=== PATIENT | female | born 1945 | race Caucasian/White ===

== ENCOUNTER 2024-11-03 10:08 | Inpatient (IN) ==
--- OUTSIDE RECORDS SUMMARY | 2024-11-03 10:17 | External Medical Summary | Summary of Care ---
Author Name Unknown Organization [facility] Address [address] [facility] [address] Phone [phone] Care Team Providers Care Sheet Rock Applier Name Role Phone Ortiz Iraheta PA-C Primary Care Provider [phone] Reason for Referral * Evaluate & Treat - Unlimited Visits (Within 10 days (routine)) - Pending Review Specialty Diagnoses / Procedures Referred By Teresita teague Referred To Contact Gastroenterology Diagnoses GERD (gastroesophageal reflux disease) Gas pain Magnus Sauceda MD [address] [place] [address] Referral ID Status Reason Start Date Expiration Date Visits Requested Visits Authorized [id number] Pending Review Specialty Services Required [phone] Question Answer Referral Priority Within 10 days (routine) Where should this appointment be scheduled? [facility] For what condition is the patient being referred? All Gastro Conditions Comments Gas, GERD possible ulcer Encounter Details Date Type Department Care Team (Late st Contact Info) Description 06/13/2024 Orders Only Access [place], [address] *DO NOT REMOVE THIS DEPARTMENT* [place] [id number] Request, External Referral GERD (gastroesophageal reflux disease)*; Gas pain Allergies Active Allergy Reactions Criticality Noted Date Comments Morphine And Codeine 02/19/2004 Propoxyphene Hcl 02/19/2004 documented as of this encounter (statuses as of 06/13/2024) Medications Medication Sig Dispensed Refills Start Date End Date Status MULTIVITAMINS PO TABS 1 TABLET DAILY 04/19/2010 Active STOOL SOFTENER 100 MG PO CAPS take 2 am and 2 pm Active FLUOXETINE HCL 20 MG PO CAPSIndications:Depr essive disorder, not elsewhere classified TAKE ONE CAPSULE BY MOUTH TWICE DAILY 180 Cap 3 08/26/2011 Active PROTONIX 40 MG PO TBECIndications:Esop hageal reflux 1 capsule twice a day 180 Tab 3 08/26/2011 Active RANITIDINE HCL 150 MG PO TABSIndications:Refl ux esophagitis One pill by mouth twice daily 180 Tab 3 08/26/2011 Active LEVOXYL 112 MCG OR TABSIndications:Hypo thyroidism TAKE 1 TABLET ONCE DAILY EXCEPT ONLY TAKE 1/2 TABLET EVERY MONDAY 90 Tab 3 08/26/2011 Active FLONASE 50 MCG/ACT NA SUSPIndications:Blood Or Blood Bank Technician kelsi rhinitis USE TWO SPRAYS IN EACH NOSTRIL EVERY DAY 3 Bottle 3 08/26/2011 Active ZOLPIDEM TARTRATE 10 MG PO TABSIndications:Pers istent insomnia One pill immediately before bedtime as needed for sleep. 30 Tab 5 08/26/2011 Active TRAMADOL HCL 50 MG PO TABSIndications:Exam ination following surgery,Hemorrhoids TAKE ONE TABLET BY MOUTH EVERY SIX HOURS NEEDED 120 Tab 0 08/31/2011 Active documented as of this encounter (statuses as of 06/13/2024) Active Problems Problem Noted Date Diagnosed Date Gastroparesis 04/28/2010 Overview: [place] GES at [place] on 04/22/10: T1/2 = 356 minutes. OVERWEIGHT, BMI 25-29 11/23/2009 Overview: Per Obesity Taxonomy Pain in limb 11/14/2005 Venous insufficiency 09/30/2005 Other and unspecified nonspecific immunological findings 12/17/2002 Sicca syndrome 12/17/2002 Hypothyroidism Dyslipidemia, goal to be determined Esophageal reflux Major depressive disorder Overview: ICD-10 update of inactive term Chronic rhinitis Varicose vein of leg Need for prophylactic hormon e replacement therapy (postmenopausal) Diaphragmatic hernia documented as of this encounter (statuses as of 06/13/2024) Resolved Problems Problem Noted Date Diagnosed Date Resolved Date OBESITY, UNSPECIFIED 010 Overview: Per Obesity Taxonomy documented as of this encounter (statuses as of 06/13/2024) Immunizations Name Administration Dates Next Due Seasonal Influenza Vac., MDV, IM, 0.5 mL (Fluzon e) 06/21/2006 TDAP, Age 7 and older, IM (Adacel) 12/15/2008 documented as of this encounter Social History Tobacco Use Types Packs/Day Years Used Date Smoking Tobacco: Former Smokeless Tobacco: Never Comments:quit 1986 Alcohol Use Standard Drinks/Week Comments No 0 (1 standard drink = 0.6 oz pur e alcohol) Utilities Answer Date Recorded Do you have trouble paying y our heating, water, or electric bill? (Adult - for ages 18 years and over) Not on file 02/13/2024 Is your family able to pay t he heat, water, or electric bill? (Household - for ages 0-17 years) Not on file 02/13/2024 Does your family have access to good internet? (Household - for ages 0-17 years) Not on file 02/13/2024 Social Connections Answer Date Recorded How often do you feel lonely or isolated from those around you? (Adult - for ages 18 years and over) Not on file 02/13/2024 Sex and Gender Information Value Date Recorded Sex Assigned at Not on file Gender Identity Not on file Sexual Orientation Not on file documented as of this encounter Plan of Treatment Scheduled Referrals Name Type Priority Associated Diagnoses Order Schedule ADULT GASTROENTEROLOGY REFERRAL OP Referral Within 10 days (routine) GERD (gastroesophageal reflux disease) Gas pain Ordered: 06/13/2024 Health Maintenance Due Date Last Done Comments Depression Monitoring 1957 Hepatitis C Screening 1965 Zoster Vaccines (1 of 2) 1997 TSH 10/21/2011 10/21/2010, 0908/2009, 12/15/2008, Additional history exists Pneumococcal Vaccine: 65+ Years (1 of 1 - PCV) 2012 DXA Scan 11/16/2018 11/16/2008 DTap/Tdap Vaccines (2 - Td or Tdap) 12/15/2018 12/15/2008 COVID-19 Vaccine (1 - season) 2024 Influenza Vaccine (FLU shot) (#1) 2024 06/21/2006 Colorectal Cancer Screening Discontinued Fecal Occult Blood Test Discontinued 11/03/2008 Cologuard Discontinued Colonoscopy Discontinued HPV (Gardasil) Vaccine Aged Out No lo nger eligible based on patient's age to complete this topic Hepatitis B Vaccine Aged Out No longe r eligible based on patient's age to complete this topic MENINGOCOCCAL (MENACTRA/MENVEO) Aged Out No longer eligible based on patient's age to complete this topic Sigmoidoscopy Discontinued documented as of this encounter Medical Devices Not on filedocumented as of this encounter Visit Diagnoses Diagnosis GERD (gastroesophageal reflux disease)- Primary Esophageal reflux Gas pain Flatulence, eructation, and gas pain documented in this encounter Care Teams Sheet Rock Applier Relationship Specialty Start Date End Date Ortiz Iraheta, SANDRO PCP - General Physician Senior Bioinformatics Scientist 10/18/11 documented as of this encounter
--- NOTE | 2024-11-03 10:47 | XRay Report ---
XR chest 1V portable CLINICAL HISTORY: Dyspnea COMPARISON STUDY: None FINDINGS: Heart size and pulmonary vasculature are normal. Upper lungs are lucent, possible emphysema . There are mild peripheral reticular opacities which are likely chronic, likely scarring or early pu lmonary fibrosis. No other consolidation or pleural effusion. No pneumothorax. IMPRESSION: No acute lobar pneumonia is seen. Otherwise as described. ACT 112: Negative or not required by law. Electronically signed by: Mark Dillard M.D. 11/03/2024 10:46 AM
[2024-11-03 10:52] LABS: Basophils # (auto) 0.06 K/uL (0.00-0.20); Basophils % (auto) 0.4 %; Eosinophils # (auto) 0.39 K/uL (0.00-0.50); Eosinophils % (auto) 2.9 %; Hematocrit (blood only) 39.8 % (37.0-47.0); Hemoglobin 12.7 g/dl (12.0-16.0); Immature Granulocytes # (auto) 0.37 K/uL (0.01-0.20); Immature Granulocytes % (auto) 2.7 %; Lymphocytes # (auto) 2.67 K/uL (1.20-3.40); Lymphocytes % (auto) 19.8 %; Mean Corpuscular Hemoglobin 29.3 pg (25.0-34.0); Mean Corpuscular Hgb Conc 31.9 g/dL (32.0-36.0); Mean Corpuscular Volume 91.9 fL (80.0-100.0); Mean Platelet Volume 8.3 fL (9.4-12.4); Monocytes # (auto) 1.27 K/uL (0.11-0.59); Monocytes % (auto) 9.4 %; Neutrophils # (auto) 8.75 K/uL (1.40-6.50); Neutrophils % (auto) 64.8 %; Platelet Count 429 K/uL (130-400); RDW Coefficient of Variation 16.7 % (11.5-14.5); RDW Standard Deviation 56.1 fL (36.4-46.3); Red Blood Count 4.33 M/uL (4.20-5.40); White Blood Count 13.51 K/ul (4.8-10.8)
[2024-11-03 11:04] LABS: Albumin Globulin Ratio 1.3 (0.9-2); BUN Creatinine Ratio 28.6 (10-20); Bilirubin,Total 0.5 mg/dl (0.2-1.0); Calcium 9.3 mg/dl (8.6-10.3); Creatinine Clr Calc Pharmacy 40.2 ml/min; Globulin 3.1 gm/dl (2.5-4.0); Total Protein 7.1 gm/dl (6.0-8.3)
[2024-11-03 11:11] LABS: Troponin I High Sensitivity 6.1 pg/ml (0-14)
[2024-11-03 11:53] LABS: Adenovirus PCR Not Detected (NotDetected); Bordetella parapertussis PCR Not Detected (NotDetected); Bordetella pertussis PCR Not Detected (NotDetected); Chlamydia pneumoniae PCR Not Detected (NotDetected); Coronavirus 229E PCR Not Detected (NotDetected); Coronavirus CoV-2 (COVID19)PCR Not Detected (NotDetected); Coronavirus HKU1 PCR Not Detected (NotDetected); Coronavirus NL63 PCR Not Detected (NotDetected); Coronavirus OC43PCR Not Detected (NotDetected); Human Metapneumovirus PCR Not Detected (NotDetected); Influenza A PCR Not Detected (NotDetected); Influenza B PCR Not Detected (NotDetected); Mycoplasma pneumoniae PCR Not Detected (NotDetected); Parainfluenza Virus 1 PCR Not Detected (NotDetected); Parainfluenza Virus 2 PCR Not Detected (NotDetected); Parainfluenza Virus 3 PCR Not Detected (NotDetected); Parainfluenza Virus 4 PCR Not Detected (NotDetected); Respiratory Syncytial VirusPCR Not Detected (NotDetected); Rhinovirus/Enterovirus PCR Not Detected (NotDetected)
[2024-11-03] MEDS: methylPREDNISolone 125 MG/2 ML VIAL IV STA (12:14)
[2024-11-03] MEDS: ALBUT/IPRATROP 3MG/0.5MG NEB 3 ML VIAL NEB STA (12:14)
[2024-11-03] MEDS: OPTIRAY 320 125ml IV ONE (12:27)
--- NOTE | 2024-11-03 12:44 | CT Scan Report ---
CT angio chest PE protocol CT DOSE: 233.08 mGy.cm HISTORY: dyspnea, hypoxia. TECHNIQUE: Multiple CTA images of the chest were obtained after the intravenous administration of 120 ml Optiray. Coronal and sagittal MIPS were obtained from the axial data set and were submitted for review. All measurements were obtained according to NASCET criteria. A dose lowering technique was u tilized adhering to the principles of ALARA. COMPARISON STUDY: Chest x-ray earlier today FINDINGS: There is minimal bronchiectasis. There are mild diffuse peripheral subpleural reticular and groundglass opacities most prominent in the lung bases which have morphology suggesting scarring or early interstitial lung disease. There is a small area of patchy consolidation medial posterior left lower lobe. No other consolidation or pleural effusion. No pneumothorax. No enlarged adenopathy. No p ericardial effusion. Ascending thoracic aorta measures 3.7 cm greatest diameter, mildly ectatic, and narrows smoothly to normal caliber of 2.7 cm at the proximal descending thoracic aorta. No pulmonary embolism seen. No pericardial effusion. No acute osseous findings. IMPRESSION: 1. No pulmonary embolism. 2. 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 3. Small area of superimposed acute pneumonia at the left lower lobe. ACT 112: Negative or not required by law. The above report was generated using voice recognition software. It may contain grammatical, syntax o r spelling errors. Electronically signed by: Mark Dillard M.D. 11/03/2024 12:41 PM
--- NOTE | 2024-11-03 13:34 | History & Physical Report ---
Date of Service November 03, 2024 Assessment & Plan (1) Dyspnea: (2) Hypoxic episode: (3) Asthma exacerbation: (4) Pneumonia involving left lung: Plan: Elda Guillen is a 79y/o F with PMHx significant for hypothyroidism, HLD, chronic rhinitis, history of vertical banding gastroplasty converted to Zeus-en-Y bypass due to gastroparesis done in 2020 at [facility], diaphragmatic hernia, GERD, SIBO, venous insufficiency, peripheral neuropathy, depression, asthma and ILD who presented to the ED with c/o persistent cough and worsening SOB over the course of several weeks. Worsening SOB and persistent cough for about the last month ISO asthma and ILD. Recently completed burst course of oral prednisone and 5-day course of oral doxycycline about 2 weeks ago. Prior to that, patient was on a Z-Jakub and also an additional oral prednisone burst course. She has not noticed any improvement in her SOB. Patient feels short of breath with both rest and exertion, however her SOB is significantly worse with activity. No supplemental oxygen use at home. Follows with Dr. Sami Cárdenas of [facility]. Had chest CT done 2 weeks ago at [facility] which was unremarkable per patient's recollection although there are no records available to review this imaging study - HIM consulted. No hypoxia at rest; however was hypoxic with ambulation in the ED with O2 sat % dropping into the mid to low 80s. Did not require supplemental O2 in the ED or at time of admission. S/p 40mg IV Solu-Medrol in the ED. Initial laboratory evaluation notable for leukocytosis with neutrophilic predominance. Procalcitonin/lactate negative. RVP negative. CXR with noted possible emphysema and mild peripheral reticular opacities which are likely chronic and represent either scarring or early pulmonary fibrosis. 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 Covering with IV cefepime for now. Check nasal MRSA swab. Obtain sputum culture as able. Probiotic added on. Follow blood cultures. Continue IV Solu-Medrol 40mg Q8H for now. Continue Breo Ellipta/Singulair. Prophylactic PPI ordered. Appreciate pulmonology consult given persistence of symptoms. Scheduled Duonebs. ISP/flutter valve. Hypertonic nebs BID. Mucinex BID. (5) Severe malnutrition: Plan: BMI 15.7 on admission. Patient endorses limited appetite due to early satiety given her history of vertical banding gastroplasty converted to Zeus-en-Y bypass due to gastroparesis which was performed in 2020 at [facility]. On megestrol liquid suspension for appetite stimulation. Nutrition consult pending. (6) Dysphagia: Plan: Patient elicits that she sometimes has difficulty swallowing food and liquid. Endorses a "stuck" sensation in her throat at times. Documented history of diaphragmatic hernia in her outpatient records however patient and her daughter do not recall this. Did obtain CTAP for further evaluation. CTAP with the following findings: -Gaseous, formed stool and fluid distention of redundant colonic loops and some small bowel loops. -There are some relatively normal caliber small bowel loops in left abdomen and a spiral appearance of the mesentery which could reflect an internal hernia and partial obstruction. Will consult general surgery regarding the above findings. Full liquid diet pending general surgery evaluation. Speech therapy consult also pending to further evaluate dysphagia. Can continue home Linzess. (7) Hypothyroidism: Plan: Chronic, stable. Check TSH in AM. Continue levothyroxine. (8) Depression: Plan: Chronic, stable. Continue fluoxetine. (9) Peripheral neuropathy: Plan: Chronic, stable. Continue gabapentin. DVT Prophylaxis: SQ Heparin Code Status: FULL CODE PCP: Magnus Sauceda MD Disposition: Admit to med/telemetry for further inpatient evaluation and management. Patient seen in collaboration with Dr. Hennessy. Please see addendum. I spent a total of 65 minutes coordinating, documenting, and providing care for this patient excluding time spent in the performance of separately billed services or time spent by another provider/QHP. This included personally reviewing all current laboratories and imaging studies, medical reconciliation, outpatient chart review and discussion with specialists. This chart was completed in part utilizing Speech Voice Recognition Software. Grammatical errors, random word insertions, pronoun errors, and incomplete sentences are an occasional consequence of this system due to software limitations, ambient noise, and hardware issues. Any formal questions or c oncerns about the content, text, or information contained within the body of this dictation should be directly addressed to the provider for clarification. History of Present Illness Chief Complaint: Ongoing cough and worsening SOB, flulike symptoms Primary Care Provider: Magnus Sauceda MD Elda Guillen is a 79y/o F with PMHx significant for hypothyroidism, HLD, chronic rhinitis, history of vertical banding gastroplasty converted to Zeus-en-Y bypass due to gastroparesis done in 2020 at [facility], diaphragmatic hernia, GERD, SIBO, venous insufficiency, peripheral neuropathy, depression, asthma and ILD who presented to the ED with c/o persistent cough and worsening SOB over the course of several weeks. History obtained from the patient, daughter at bedside, discussion with ED provider and associated chart review. Patient with worsening SOB and persistent cough for about the last month ISO asthma and ILD. Recently completed burst course of oral prednisone and 5-day course of oral doxycycline about 2 weeks ago. Prior to that, patient was on a Z- Jakub and also an additional oral prednisone burst course. She has not noticed any improvement in her SOB. Patient feels short of breath with both rest and exertion, however her SOB is significantly worse and more noticeable with activity. Her breathing has gradually declined over the past month to the point where she becomes greatly winded with minimal exertion. No supplemental oxygen use at home. Follows with Dr. Sami Cárdenas of [facility]. Currently on Singulair and Breo Ellipta inhaler for maintenance therapy. Notes she was started on Breo Ellipta about 3 months ago. Was previously on Spiriva per her daughter. Has been using budesonide nebulizer treatments daily for the past month or so. Denies using her albuterol rescue inhaler all but a few times however. Her cough was initially productive of yellow/green sputum however now it is significantly less productive after finishing the doxycycline course about 2 weeks ago as mentioned previously. No reported fevers. Had chest CT done 2 weeks ago at [facility] which was unremarkable per patient's recollection although there are no records available to review this imaging study. Not hypoxic at rest in the ED, however her oxygen saturation did drop to the low 80s with ambulation. Did not require any supplemental oxygen in the ED. Remains nonhypoxic at rest during our conversation. Initial laboratory evaluation notable for leukocytosis with neutrophilic predominance (WBC of 13.5k). Electrolytes stable. Procalcitonin negative. Lactate negative. Respiratory BioFire panel negative as well. CXR with noted possible emphysema and mild peripheral reticular opacities which are likely chronic and represent either scarring or early pulmonary fibrosis. 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 Allergies Allergy/AdvReac Type Severity Reaction Status Date / Time Penicillins Allergy Intermediate Rash Unverified 11/03/24 12:45 Sulfa (Sulfonamide Allergy Intermediate Rash Unverified 11/03/24 12:45 Antibiotics) Home Medications Medication Instructions Recorded Confirmed Type fluoxetine 40 mg capsule 40 mg PO QAM 03/28/24 11/03/24 History gabapentin 100 mg capsule 100 mg PO TID 03/28/24 11/03/24 History levothyroxine 100 mcg tablet 100 mcg PO QAM 03/28/24 11/03/24 History melatonin 10 mg capsule 10 mg PO HS 03/28/24 11/03/24 History montelukast 10 mg tablet 10 mg PO DAILY 03/28/24 11/03/24 History trazodone 100 mg tablet 100 mg PO HS 03/28/24 11/03/24 History albuterol sulfate 90 mcg/actuation 1 puff inhalation QID PRN 11/03/24 11/03/24 History aerosol inhaler SOB/wheezing budesonide 0.5 mg/2 mL suspension 0.5 mg inhalation BID PRN 11/03/24 11/03/24 History for nebulization SOB/WHEEZING fluticasone furoate 100 1 inh inhalation QAM 11/03/24 11/03/24 History mcg-vilanterol 25 mcg/dose inhalation powder (Breo Ellipta) linaclotide 145 mcg capsule 145 mcg PO QAM 11/03/24 11/03/24 History (Linzess) megestrol 625 mg/5 mL (125 mg/mL) 625 mg PO QAM 11/03/24 11/03/24 History oral suspension Past Med/Surg History Problem List (Updated 11/03/24 @ 16:07 by Lisa Winn PA-C) Peripheral neuropathy Depression Hypothyroidism Dysphagia GERD (gastroesophageal reflux disease) Severe malnutrition Hypoxic episode Asthma exacerbation Dyspnea Hypoxia (Acute) Pneumonia involving left lung (Acute) Dyspnea on exertion (Acute) Social History Smoking Status: Never smoker Feels Safe at Home: Yes Review of Systems Review of Systems: At least ten systems reviewed and negative, except as noted in the HPI. Physical Exam Physical Exam: General: Thin/frail elderly F, malnourished. NAD. Sitting up in bed, very pleasant. Conversing with ease at rest. A+Ox3. Daughter at bedside. HEENT: Normocephalic, atraumatic. Conjunctivae normal, anicteric sclerae. External ear and nose normal, oropharynx somewhat dry. Respiratory: Normal respiratory effort. Lung sounds diminished throughout. + rhonchi in LLL. + mild expiratory wheezing throughout. On RA. Cardiovascular: Regular rate, regular rhythm. Normal peripheral pulses. No BLE edema. Abdomen/GI: Normal bowel sounds, soft. Nondistended. Nontender to palpation in all quadrants. No guarding. Extremities/Musculoskeletal: No cyanosis or clubbing, extremities motor strength intact, actively moves all extremities. Results & Data Results & Data Vital Signs (Past 12 Hours) Vital Signs Temp Pulse Resp BP Pulse Ox Pulse Ox O2 Del Method 11/03/24 13:03 74 20 121/65 98 Room Air 11/03/24 12:42 73 20 119/62 98 Room Air 11/03/24 12:12 70 23 122/66 98 Room Air 11/03/24 11:33 67 19 125/73 99 Room Air 11/03/24 11:26 87 L Room Air 11/03/24 11:12 66 19 126/66 99 Room Air 11/03/24 10:39 65 11/03/24 10:37 99 Room Air 11/03/24 10:36 65 19 131/63 99 Room Air 11/03/24 10:16 36.2 C L 76 22 107/66 99 Room Air Laboratory Results Short CBC 11/03/24 Range/Units 10:30 WBC 13.51 H (4.8-10.8) K/ul Hgb 12.7 (12.0-16.0) g/dl Hct 39.8 (37.0-47.0) % Plt Count 429 H (130-400) K/uL BMP 11/03/24 10:30 Sodium 136 Potassium 4.0 Chloride 108 H Carbon Dioxide 22 BUN 22 Creatinine 0.77 Glucose 82 Calcium 9.3 Liver Function 11/03/24 Range/Units 10:30 Total Bilirubin 0.5 (0.2-1.0) mg/dl AST 19 (13-39) U/L ALT 20 (7-52) U/L Alkaline Phosphatase 67 (34-104) U/L Albumin 4.0 (3.4-5.0) gm/dl Diagnostic Findings Chest X-Ray 11/03/24 10:30 XR chest 1V portable CLINICAL HISTORY: Dyspnea COMPARISON STUDY: None FINDINGS: Heart size and pulmonary vasculature are normal. Upper lungs are lucent, possible emphysema. There are mild peripheral reticular opacities which are likely chronic, likely scarring or early pulmonary fibrosis. No other consolidation or pleural effusion. No pneumothorax. IMPRESSION: No acute lobar pneumonia is seen. Otherwise as described. ACT 112: Negative or not required by law. Electronically signed by: Mark Dillard M.D. 11/03/2024 10:46 AM Chest CTA 11/03/24 12:05 CT angio chest PE protocol CT DOSE: 233.08 mGy.cm HISTORY: dyspnea, hypoxia. TECHNIQUE: Multiple CTA images of the chest were obtained after the intravenous administration of 120 ml Optiray. Coronal and sagittal MIPS were obtained from the axial data set and were submitted for review. All measurements were obtained according to NASCET criteria. A dose lowering technique was utilized adhering to the principles of ALARA. COMPARISON STUDY: Chest x-ray earlier today FINDINGS: There is minimal bronchiectasis. There are mild diffuse peripheral subpleural reticular and groundglass opacities most prominent in the lung bases which have morphology suggesting scarring or early interstitial lung disease. There is a small area of patchy consolidation medial posterior left lower lobe. No other consolidation or pleural effusion. No pneumothorax. No enlarged adenopathy. No pericardial effusion. Ascending thoracic aorta measures 3.7 cm greatest diameter, mildly ectatic, and narrows smoothly to normal caliber of 2.7 cm at the proximal descending thoracic aorta. No pulmonary embolism seen. No pericardial effusion. No acute osseous findings. IMPRESSION: 1. No pulmonary embolism. 2. 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 3. Small area of superimposed acute pneumonia at the left lower lobe. ACT 112: Negative or not required by law. The above report was generated using voice recognition software. It may contain grammatical, syntax or spelling errors. Electronically signed by: Mark Dillard M.D. 11/03/2024 12:41 PM Medications Administered Discontinued Medications Albuterol (Albut/Ipratrop 3mg/0.5mg Neb 3 Ml Vial) 3 ml NEB NOW STA; Protocol Stop: 11/03/24 12:06 Last Admin: 11/03/24 12:14 Dose: 3 ml Documented By: JENSEN Ioversol (Optiray 320 125ml) 119 ml IV ONCE ONE Stop: 11/03/24 12:28 Last Admin: 11/03/24 12:27 Dose: 119 ml Documented By: RANULFO Methylprednisolone (Methylprednisolone 125 Mg/2 Ml Vial) 60 mg IV NOW STA Stop: 11/03/24 12:06 Last Admin: 11/03/24 12:14 Dose: 60 mg Documented By: JENSEN Code Status & VTE Plan Code Status FULL CODE Supervising Physician Co-Signing Physician Notes Attending Addendum: Case reviewed with the advanced practitioner. I have personally performed a history and physical examination on the patient. I have reviewed the advanced practitioner's documentation on the date of service referenced in note, and I agree with, and take responsibility for the plan of care. please refer to her notes for full details patient seen and examined, records reviewed by myself as well on exam, patient Seen resting in bed, comfortable, not in distress States breathing is improving since admission Occasional cough no other symptoms VS noted and reviewed oriented x 3, not in distress, speaks in sentences with no effort nor accessory muscle use normal rate, regular rhythm, no murmurs Mild rales at the bases non distended, soft, nontender no bipedal edema, erythema, warmth no neuro deficits all labs, imaging noted and reviewed ASSESSMENT AND PLAN> Left lower lobe pneumonia Asthma exacerbation Interstitial lung disease Not improving with outpatient regimen-doxycycline, azithromycin, prednisone Sputum culture, nasal MRSA swab IV cefepime Nebs every 6 hours, hypertonic saline Severe reflux contributing? Protonix twice daily Pulmonology consulted Internal hernia versus small bowel obstruction Seen on CT abdomen pelvis General Surgery consulted Seen on CT abdomen pelvis General Surgery consulted other diagnoses and plan of care as per advanced practitioner's notes I spent a total of 35 minutes coordinating, documenting, and providing care for this patient, excluding time spent in the performance of separately billed ser vices or time spent by another provider/QHP. Charles Hennessy MD (1) Dyspnea Dyspnea type: unspecified Qualified Code(s): R06.00 - Dyspnea, unspecified (3) Asthma exacerbation Asthma persistence: unspecified Asthma severity: unspecified severity Qualified Code(s): J45.901 - Unspecified asthma with (acute) exacerbation (4) Pneumonia involving left lung Lung location: lower lobe of lung Pneumonia type: due to unspecified organism Qualified Code(s): J18.9 - Pneumonia, unspecified organism (6) Dysphagia Dysphagia type: unspecified Qualified Code(s): R13.10 - Dysphagia, unspecified (7) Hypothyroidism Hypothyroidism type: unspecified Qualified Code(s): E03.9 - Hypothyroidism, unspecified (8) Depression Depression Type: unspecified Qualified Code(s): F32.A - Depression, unspecified (9) Peripheral neuropathy Peripheral neuropathy type: polyneuropathy, unspecified Qualified Code(s): G62.9 - Polyneuropathy, unspecified
[2024-11-03] MEDS: DOXYCYCLINE HYCLATE 100 MG in DEXTROSE 5% MINI-B 100 ML IV STA (14:15)
[2024-11-03] MEDS: cefTRIAXone SODIUM 2,000 MG/50 ML BAG IV STA (14:15)
--- NOTE | 2024-11-03 14:22 | Emergency Department Note ---
Impression & Plan Dyspnea on exertion, Pneumonia involving left lung, Hypoxia ED Provider Note NAME: ELIER KNIGHT AGE: 79 SEX: Female INFORMANT: Patient ED PROVIDER(S): Leonardo Grove MD CHIEF COMPLAINT: Shortness of breath PLAN: Disposition: Admitted Outpatient prescription management: none Referral: None MEDICAL DECISION MAKING: Patient presented because shortness of breath. Her O2 saturations at rest seem to be okay however they dropped precipitously with exertion. Patient unremarkable chemistry panel. Her CBC did show a mild leukocytosis. Her BNP and troponin were negative. ECG was unremarkable. The patient underwent CT imaging of the chest. She was found to have no evidence of pulmonary embolism but pneumonia seen. Antibiotics ordered. Consultation was made with the hospitalist service. Patient was evaluated in the ER and admitted for further management. Care/management discussed with: artist and repertoire manager Level of care consideration(s): After review of the information above and other included data, I feel the patient requires escalation of care to admission Triage Nursing notes: reviewed and agree them. Vital Signs: reviewed and remarkable for hypoxia with exertion Additional History obtained from: Patient's daughter Chronic Medical/Social Conditions affecting care: Interstitial lung disease Prior/ Outside/ External records reviewed: I did attempt again recent imaging records from [facility] however they were not available today. Differential Diagnosis: Reactive airway disease, pneumonia, pneumothorax, COPD, CHF, infections, cardiac ischemia, pulmonary embolism, musculoskeletal, gastrointestinal, as well as other pathologies. Diagnostics, independently interpreted by me: ECG: Twelve-lead ECG reveals normal sinus rhythm at 68 beats per minute. Septal Q wave. No evidence of pericarditis, ischemia, ectopy, or dysrhythmia. Cardiac Monitoring: Cardiac monitoring ordered by me: The patient was placed on continuous cardiac monitoring and observed. It revealed a normal sinus rhythm at 82 beats per minute without ectopy or evidence of dysrhythmia. Medical decision rules: none Imaging studies: Chest x-ray. Findings: A chest x-ray was performed and revealed no pneumothorax, effusion, infiltrate, pulmonary edema, free air under the diaphragm, or wide mediastinum. Emphysematous changes noted. CT scan of the chest as noted above. HPI: 79 year old Female arrives for evaluation of shortness of breath. This started over 2 weeks ago and is worsening. The patient also notes the following associated symptoms, dyspnea on exertion. The patient has been previously prescribed antibiotics and steroids without success for relieving factors. Current pain is rated as 0/10. Pt denies LOC, headache, fevers, chills, diaphoresis, visual changes, neck pain, chest pain, breathing difficulties, nausea, vomiting, abdominal pain, back pain, melena, hematochezia, urinary symptoms, numbness, weakness, lymphadenopathy, rash, or other complaints.. PAST MEDICAL HISTORY: See Below, interstitial lung disease PAST SURGICAL HISTORY: See Below, SOCIAL HISTORY: See Below, denies smoking HOME MEDICATIONS: See Below ALLERGIES: See Below VITALS: See Below PHYSICAL EXAMINATION: GENERAL: Awake, alert, mildly dyspneic-appearing, in no distress HENT: Normocephalic, atraumatic. Oropharynx unremarkable. EYES: Normal conjunctiva. Sclera non-icteric. NECK: Inspection normal. Non-tender. Supple. No nuchal rigidity. FROM. No masses. RESPIRATORY: Scattered crackles in the bases bilaterally no wheezes. Mildly increased respiratory effort. CARDIAC: Normal rate. Normal rhythm. No murmurs. No rubs. Extremities warm and well perfused. Pulses equal. No JVD. GI: Soft, non-distended. No tenderness to palpation. No rebound or guarding. No masses. RECTAL: Deferred. MUSCULOSKELETAL: Atraumatic. Chest examination reveals no tenderness. The back is symmetrical on inspection without obvious abnormality. There is no CVA tenderness to palpation. No joint edema. LOWER EXTREMITIES: Calves are equal size bilaterally and non-tender. No edema. No discoloration. NEURO: Normal sensorium. No sensory or motor deficits noted. SKIN: No rash or jaundice noted. PROCEDURES: none CRITICAL CARE: none OBSERVATION NOTE: none Past Med/Surg History Problem List (Updated 11/03/24 @ 16:07 by Lisa Winn PA-C) Peripheral neuropathy Depression Hypothyroidism Dysphagia GERD (gastroesophageal reflux disease) Severe malnutrition Hypoxic episode Asthma exacerbation Dyspnea Hypoxia (Acute) Pneumonia involving left lung (Acute) Dyspnea on exertion (Acute) Social History Smoking Status: Never smoker Feels Safe at Home: Yes Allergies Allergies Allergy/AdvReac Type Severity Reaction Status Date / Time Penicillins Allergy Intermediate Rash Unverified 11/03/24 12:45 Sulfa (Sulfonamide Allergy Intermediate Rash Unverified 11/03/24 12:45 Antibiotics) Home Meds Home Medications Medication Instructions Recorded Confirmed fluoxetine 40 mg capsule 40 mg PO QAM 03/28/24 11/03/24 gabapentin 100 mg capsule 100 mg PO TID 03/28/24 11/03/24 levothyroxine 100 mcg tablet 100 mcg PO QAM 03/28/24 11/03/24 melatonin 10 mg capsule 10 mg PO HS 03/28/24 11/03/24 montelukast 10 mg tablet 10 mg PO DAILY 03/28/24 11/03/24 trazodone 100 mg tablet 100 mg PO HS 03/28/24 11/03/24 albuterol sulfate 90 mcg/actuation 1 puff inhalation QID PRN 11/03/24 11/03/24 aerosol inhaler SOB/wheezing budesonide 0.5 mg/2 mL suspension 0.5 mg inhalation BID PRN 11/03/24 11/03/24 for nebulization SOB/WHEEZING fluticasone furoate 100 1 inh inhalation QAM 11/03/24 11/03/24 mcg-vilanterol 25 mcg/dose inhalation powder (Breo Ellipta) linaclotide 145 mcg capsule 145 mcg PO QAM 11/03/24 11/03/24 (Linzess) megestrol 625 mg/5 mL (125 mg/mL) 625 mg PO QAM 11/03/24 11/03/24 oral suspension Results & Data (ED) Vital Signs Vital Signs - 24 hr 11/03/24 10:16 11/03/24 10:36 11/03/24 10:37 Temperature 36.2 C L Temperature Source Temporal Artery Scan Pulse Rate 76 65 Respiratory Rate 22 19 Respiratory Effort / Characteristics Short of Breath SOB on Exertion Respiratory Depth Normal Blood Pressure 107/66 131/63 Blood Pressure Mean 79 85 Blood Pressure Position Lying Pulse Oximetry 99 99 99 Pulse Oximetry [Exercises] Oxygen Delivery Method Room Air Room Air Room Air Sepsis Recent Fever Within 48 Hours No Sepsis New/Unexplained Change in Mental Status N/A Sepsis Action Taken by Nursing No Action Required 11/03/24 10:39 11/03/24 11:12 11/03/24 11:26 Temperature Temperature Source Pulse Rate 65 66 Respiratory Rate 19 Respiratory Effort / Characteristics Respiratory Depth Blood Pressure 126/66 Blood Pressure Mean 86 Blood Pressure Position Pulse Oximetry 99 Pulse Oximetry [Exercises] 87 L Oxygen Delivery Method Room Air Room Air Sepsis Recent Fever Within 48 Hours Sepsis New/Unexplained Change in Mental Status Sepsis Action Taken by Nursing 11/03/24 11:33 11/03/24 12:12 11/03/24 12:42 Temperature Temperature Source Pulse Rate 67 70 73 Respiratory Rate 19 23 20 Respiratory Effort / Characteristics Respiratory Depth Blood Pressure 125/73 122/66 119/62 Blood Pressure Mean 90 84 81 Blood Pressure Position Pulse Oximetry 99 98 98 Pulse Oximetry [Exercises] Oxygen Delivery Method Room Air Room Air Room Air Sepsis Recent Fever Within 48 Hours Sepsis New/Unexplained Change in Mental Status Sepsis Action Taken by Nursing 11/03/24 13:03 11/03/24 13:39 Temperature Temperature Source Pulse Rate 74 81 Respiratory Rate 20 20 Respiratory Effort / Characteristics Respiratory Depth Blood Pressure 121/65 122/60 Blood Pressure Mean 83 80 Blood Pressure Position Pulse Oximetry 98 97 Pulse Oximetry [Exercises] Oxygen Delivery Method Room Air Room Air Sepsis Recent Fever Within 48 Hours Sepsis New/Unexplained Change in Mental Status Sepsis Action Taken by Nursing Laboratory Data 11/03/24 10:30 11/03/24 10:30 Lab Results 11/03/24 Range/Units 10:30 WBC 13.51 H (4.8-10.8) K/ul RBC 4.33 (4.20-5.40) M/uL Hgb 12.7 (12.0-16.0) g/dl Hct 39.8 (37.0-47.0) % MCV 91.9 (80.0-100.0) fL MCH 29.3 (25.0-34.0) pg MCHC 31.9 L (32.0-36.0) g/dL RDW Std Deviation 56.1 H (36.4-46.3) fL RDW Coeff of [place] 16.7 H (11.5-14.5) % Plt Count 429 H (130-400) K/uL MPV 8.3 L (9.4-12.4) fL Immature Gran % (Auto) 2.7 % Neut % (Auto) 64.8 % Lymph % (Auto) 19.8 % [place]al[place] % (Auto) 9.4 % Eos % (Auto) 2.9 % Baso % (Auto) 0.4 % Neut # (Auto) 8.75 H (1.40-6.50) K/uL Lymph # (Auto) 2.67 (1.20-3.40) K/uL [place]ier # (Auto) 1.27 H (0.11-0.59) K/uL Eos # (Auto) 0.39 (0.00-0.50) K/uL Baso # (Auto) 0.06 (0.00-0.20) K/uL Immature Gran # (Auto) 0.37 H (0.01-0.20) K/uL Sodium 136 (136-145) mmol/L Potassium 4.0 (3.5-5.1) mmol/L Chloride 108 H (98-107) mmol/L Carbon Dioxide 22 (21-32) mmol/L Anion Gap 6 (3-11) BUN 22 (6-23) mg/dl Creatinine 0.77 (0.6-1.2) mg/dl Est Cr Clr Drug Dosing 40.2 ml/min eGFR 79.40 BUN/Creatinine Ratio 28.6 H (10-20) Glucose 82 (70-99(Fasting)) mg/dl Calcium 9.3 (8.6-10.3) mg/dl Magnesium 2.0 (1.7-2.4) mg/dl Total Bilirubin 0.5 (0.2-1.0) mg/dl AST 19 (13-39) U/L ALT 20 (7-52) U/L Alkaline Phosphatase 67 (34-104) U/L Troponin I High Sens 6.1 (0-14) pg/ml B-Natriuretic Peptide 31 (0-100) pg/ml Total Protein 7.1 (6.0-8.3) gm/dl Albumin 4.0 (3.4-5.0) gm/dl Globulin 3.1 (2.5-4.0) gm/dl Albumin/Globulin Ratio 1.3 (0.9-2) Procalcitonin 0.03 (0-0.5) ng/ml Adenovirus (PCR) Not Detected (NotDetected) B. pertussis DNA (PCR) Not Detected (NotDetected) B.parapertussis DNA PCR Not Detected (NotDetected) C. pneumoniae DNA (PCR) Not Detected (NotDetected) Coronavirus OC43 (PCR) Not Detected (NotDetected) Coronavirus HKU1 (PCR) Not Detected (NotDetected) Coronavirus 229E (PCR) Not Detected (NotDetected) SARS-CoV-2 (PCR) Not Detected (NotDetected) Coronavirus NL63 (PCR) Not Detected (NotDetected) Human Metapneumovir PCR Not Detected (NotDetected) Influenza Type A (PCR) Not Detected (NotDetected) Influenza Type B (PCR) Not Detected (NotDetected) M. pneumoniae (PCR) Not Detected (NotDetected) Parainfluenza 1 (PCR) Not Detected (NotDetected) Parainfluenza 2 (PCR) Not Detected (NotDetected) Parainfluenza 3 (PCR) Not Detected (NotDetected) Parainfluenza 4 (PCR) Not Detected (NotDetected) RSV (PCR) Not Detected (NotDetected) Entero/Rhino (PCR) Not Detected (NotDetected) Administered Medications Cefepime HCl (Maxipime 2000mg) 2,000 mg in 20 mls @ 5 mls/min IV Q12H [facility]; Protocol Stop: 11/08/24 14:44 Last Admin: 11/03/24 14:34 Dose: 5 mls/min Documented By: JENSEN Discontinued Medications Albuterol (Albut/Ipratrop 3mg/0.5mg Neb 3 Ml Vial) 3 ml NEB NOW STA; Protocol Stop: 11/03/24 12:06 Last Admin: 11/03/24 12:14 Dose: 3 ml Documented By: JENSEN Ceftriaxone Sodium (Rocephin) 2,000 mg in 50 mls @ 100 mls/hr IV NOW STA Stop: 11/03/24 13:39 Last Admin: 11/03/24 14:15 Dose: Not Given Documented By: JENSEN Doxycycline Hyclate 100 mg/ (Dextrose) 100 mls @ 50 mls/hr IV NOW STA Stop: 11/03/24 15:09 Last Admin: 11/03/24 14:15 Dose: Not Given Documented By: JENSEN Ioversol (Optiray 320 125ml) 119 ml IV ONCE ONE Stop: 11/03/24 12:28 Last Admin: 11/03/24 12:27 Dose: 119 ml Documented By: RANULFO Methylprednisolone (Methylprednisolone 125 Mg/2 Ml Vial) 60 mg IV NOW STA Stop: 11/03/24 12:06 Last Admin: 11/03/24 12:14 Dose: 60 mg Documented By: MMN Imaging Data Radiologist's Impression: Chest X-Ray 11/03/24 10:30 XR chest 1V portable CLINICAL HISTORY: Dyspnea COMPARISON STUDY: None FINDINGS: Heart size and pulmonary vasculature are normal. Upper lungs are lucent, possible emphysema. There are mild peripheral reticular opacities which are likely chronic, likely scarring or early pulmonary fibrosis. No other consolidation or pleural effusion. No pneumothorax. IMPRESSION: No acute lobar pneumonia is seen. Otherwise as described. ACT 112: Negative or not required by law. Electronically signed by: Mark Dillard M.D. 11/03/2024 10:46 AM Chest CTA 11/03/24 12:05 CT angio chest PE protocol CT DOSE: 233.08 mGy.cm HISTORY: dyspnea, hypoxia. TECHNIQUE: Multiple CTA images of the chest were obtained after the intravenous administration of 120 ml Optiray. Coronal and sagittal MIPS were obtained from the axial data set and were submitted for review. All measurements were obtained according to NASCET criteria. A dose lowering technique was utilized adhering to the principles of ALARA. COMPARISON STUDY: Chest x-ray earlier today FINDINGS: There is minimal bronchiectasis. There are mild diffuse peripheral subpleural reticular and groundglass opacities most prominent in the lung bases which have morphology suggesting scarring or early interstitial lung disease. There is a small area of patchy consolidation medial posterior left lower lobe. No other consolidation or pleural effusion. No pneumothorax. No enlarged adenopathy. No pericardial effusion. Ascending thoracic aorta measures 3.7 cm greatest diameter, mildly ectatic, and narrows smoothly to normal caliber of 2.7 cm at the proximal descending thoracic aorta. No pulmonary embolism seen. No pericardial effusion. No acute osseous findings. IMPRESSION: 1. No pulmonary embolism. 2. 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 3. Small area of superimposed acute pneumonia at the left lower lobe. ACT 112: Negative or not required by law. The above report was generated using voice recognition software. It may contain grammatical, syntax or spelling errors. Electronically signed by: Mark Dillard M.D. 11/03/2024 12:41 PM Discharge Plan Visit Data Chief Complaint: Shortness of Breath/Dyspnea Stated Complaint: TROUBLE BREATHING ED Provider: Leonardo Grove Discharge Problem: Dyspnea on exertion, Pneumonia involving left lung, Hypoxia
[2024-11-03] MEDS: CEFEPIME 2000MG 2,000 MG/20 ML SYR IV SCH (14:34)
--- NOTE | 2024-11-03 15:39 | CT Scan Report ---
EXAM: CT Abdomen and Pelvis Without Intravenous Contrast INDICATION: Abdominal pain TECHNIQUE: Axial computed tomography images of the abdomen and pelvis without intravenous contrast. Sagittal and coronal reformatted images were created and reviewed. This CT exam was performed using one or more of the following dose reduction techniques: automated exposure control, adjustment of the mA and/or kV according to patient size, and/or use of iterative reconstruction technique. COMPARISON: 03/28/2024 FINDINGS: Limitations: None. Lung bases: There is increased airway thickening and subpleural reticulation in the lower lobes. Pleural space: No visualized pleural effusion or pneumothorax. Heart: No abnormality noted. Mediastinum: No abnormality noted. ABDOMEN: Liver: Lack of intravenous contrast limits detection of some masses. No abnormality noted. Gallbladder and bile ducts: No calcified stones or surrounding fluid. Pancreas: No pancreatic mass, calcification, inflammation or ductal dilation noted. Spleen: No significant abnormality noted. Adrenals: No significant abnormality noted. Kidneys and ureters: No abnormality noted. No stones. No hydronephrosis. No significant perinephric fluid. Stomach and bowel: Suboptimal assessment of the intestinal tract without enteric contrast. Multiple anastomotic staple lines noted. The redundant colon is distended with air, solid stool and some admixed fluid. There are mildly prominent fluid-filled small bowel loops. There is a somewhat swirling appearance of the mesentery and collapsed bowel loops in the left pelvis series 2 images 43-56. There is no associated inflammation. Distal rectum collapsed and cannot be assessed for mass. PELVIS: Appendix: No findings to suggest acute appendicitis. Bladder: There is excreted contrast in the urinary bladder without filling defect. Reproductive: No abnormalities noted. ABDOMEN and PELVIS: Intraperitoneal space: No free air or free fluid. Bones/joints: No acute changes. Soft tissues: No significant abnormality noted. Vasculature: No abdominal aortic aneurysm. Lymph nodes: No pathologically enlarged lymph nodes. IMPRESSION: There is gaseous, formed stool and fluid distention of redundant colonic loops and some small bowel loops. There are some relatively normal caliber small bowel loops in the left abdomen and a swirled appearance of the mesentery which could reflect an internal hernia and partial obstruction. Distal rectum is collapsed and cannot be assessed for mass. There is no perforation or abscess. ACT 112: N/A Electronically signed by Marylou Acuna 11-03-2024 3:38 PM
[2024-11-03] MEDS ORDERED: POLYETHYLENE (MIRALAX) 17 GM PACK PO PRN (19:31)
[2024-11-03] MEDS ORDERED: methylPREDNISolone 125 MG/2 ML VIAL IV SCH (19:31)
[2024-11-03] MEDS ORDERED: MAGNESIUM HYDROXIDE SUSP 30 ML UDC PO PRN (19:31)
[2024-11-03] MEDS ORDERED: ONDANSETRON INJ 2 MG/ML 2 ML VIAL IV PRN (19:31)
[2024-11-03] MEDS ORDERED: ACETAMINOPHEN 325 MG TAB PO PRN (19:31)
[2024-11-03] MEDS: ALBUT/IPRATROP 3MG/0.5MG NEB 3 ML VIAL NEB SCH (19:56)
[2024-11-03] MEDS: SODIUM CHLOR 7% 4 ML NEB NEB SCH (19:58)
[2024-11-03] MEDS: MELATONIN 3 MG TAB PO SCH (20:54)
[2024-11-03] MEDS: hydrOXYzine HCl 10 MG TAB PO PRN (20:54)
[2024-11-03] MEDS: PANTOprazole 40 MG TAB PO SCH (20:55)
[2024-11-03] MEDS: methylPREDNISolone 40 MG in SYRINGE 0 ML IV SCH (20:55)
[2024-11-03] MEDS: guaiFENesin 600 MG TABCR PO SCH (20:55)
[2024-11-03] MEDS: traZODone HCL 100 MG TAB PO SCH (20:56)
[2024-11-03] MEDS: GABAPENTIN 100 MG CAP PO SCH (20:57)
[2024-11-03] MEDS: ADVANCED PROBIOTIC 625 MG CAPSULE PO SCH (20:57)
[2024-11-03] MEDS: HEPARIN SOD 5,000 UNIT/0.5 ML VIAL SQ SCH (21:02)
[2024-11-03 21:27] LABS: Appearance Urine Clear (Clear); Bacteria Urine Automated None Seen (None Seen); Bilirubin Urine Negative (Negative); Blood Urine 2+ (Negative); Cast Urine Automated 0-2 /lpf (0-2); Color Urine Yellow; Epithelial Cell Urine Auto 0-2 /hpf (0-2); Glucose Urine UA 3+ (Negative); Ketones Urine Negative (Negative); Leukocyte Esterase Urine Negative (Negative); Nitrite Urine Negative (Negative); Protein Urine 1+ (Negative); Specific Gravity Urine 1.039 (1.000-1.030); Urobilinogen Urine Negative (Negative); WBC Urine Automated 0-5 /hpf (0-5); pH Urine 5.5 (4.5-7.5)
[2024-11-04] MEDS: LEVOTHYROXINE SODIUM 100 MCG TABLET PO SCH (05:37)
--- NOTE | 2024-11-04 06:06 | Electrocardiogram Report ---
Test Reason : Blood Pressure : */* mmHG Vent. Rate : 68 BPM Atrial Rate : 68 BPM P-R Int : 136 ms QRS Dur : 70 ms QT Int : 400 ms P-R-T Axes : 58 -17 20 degrees QTcB Int : 425 ms Normal sinus rhythm No previous ECGs available Confirmed by Evin Santos ([id number]) on 11/04/2024 6:05:45 AM Referred By: REFERRED SELF Confirmed By: Evin Santos
[2024-11-04 06:11] LABS: Hematocrit (blood only) 34.7 % (37.0-47.0); Hemoglobin 11.3 g/dl (12.0-16.0); Mean Corpuscular Hemoglobin 29.6 pg (25.0-34.0); Mean Corpuscular Hgb Conc 32.6 g/dL (32.0-36.0); Mean Corpuscular Volume 90.8 fL (80.0-100.0); Mean Platelet Volume 8.4 fL (9.4-12.4); Platelet Count 375 K/uL (130-400); RDW Coefficient of Variation 16.7 % (11.5-14.5); RDW Standard Deviation 55.2 fL (36.4-46.3); Red Blood Count 3.82 M/uL (4.20-5.40); White Blood Count 10.68 K/ul (4.8-10.8)
[2024-11-04 06:17] LABS: BUN Creatinine Ratio 25.3 (10-20); Potassium 4.4 mmol/L (3.5-5.1)
[2024-11-04 06:32] LABS: Thyroid Stimulating Hormone 0.956 uIu/ml (0.300-4.500)
[2024-11-04 06:45] LABS: Folate (Folic Acid),Ser orPlas 11.79 ng/ml (>5.38)
[2024-11-04] MEDS: MONTELUKAST SODIUM 10 MG TABLET PO SCH (08:02)
[2024-11-04] MEDS: LINACLOTIDE 145 MCG CAPSULE PO SCH (08:02)
[2024-11-04] MEDS: FLUoxetine HCL 20 MG CAP PO SCH (08:02)
[2024-11-04] MEDS: MEGESTROL ACETATE 40 MG/ML PO SCH (08:03)
[2024-11-04] MEDS: FLUTICASONE/VILANTEROL 100/25MCG 14 PUFFS/INHALER INH SCH (08:03)
--- NOTE | 2024-11-04 10:02 | Pulmonary Consultation ---
Date of Consultation November 04, 2024 Assessment & Plan (1) Dyspnea on exertion: Multifactorial in the 79-year-old female who is likely severely deconditioned secondary to protein calorie malnutrition and findings of fibrotic lung changes on CT. Patient's description of dyspnea is unique in that she describes o ccasional gasping rather than persistent symptoms of dyspnea. Would recommend two-step evaluation for oxygen requirement. It is not unrealistic given her prior diagnosis from outpatient system specialist that she could have requirement for supplemental oxygen at the time of discharge. (2) Hypoxia: Saturating well on room air at this time. Again, assess oxygen requirement with ambulation prior to discharge. (3) ILD (interstitial lung disease): CTA reviewed. There does appear to be findings of interstitial lung disease that do not appear consistent with pattern of UIP as described on CT. If has not been completed already, patient may benefit from serologic evaluation in the outpatient setting. Additionally, high-resolution CT scan would also be beneficial in defining parenchymal disease. She had pulmonary function testing performed in August. She would likely benefit from pulmonary function testing with diffusion capacity to assess any significant change. Unfortunately, we are unable to compare her recent chest CT from a few weeks ago at outside institution to assess for progression versus resolution. Would recommend close follow-up with the patient's primary system specialist through [facility]. She does have an appointment later this month. (4) Pneumonia involving left lung: Infiltrative change noted at the LEFT-sided lung base on CT. Will not impressive and likely not driving the patient's symptoms, would recommend completion of therapy for community-acquired pneumonia. While the patient does have some structural lung disease changes, no documented history of pseudomonal infection. Recommend sputum cultures if able to obtain. Consideration for completion of antipseudomonal antibiotic in the outpatient setting. (5) Severe malnutrition: Defer to primary service. Appears to be more of a chronic situation. (6) Severe protein-energy malnutrition: Plan Thank you for allowing us to participate in the care of this pleasant patient. Supervising Physician Co-Signing Physician Notes Patient seen and examined separately from [facility]AC[facility]. Agree with the note as above unless otherwise noted. Patient with significant weight loss and cachexia over the last few months. She has a history of Zeus-en-Y for recurrent aspiration and gastroparesis. She has a history of ILD and is followed by the [facility] pulmonary clinic. Pulmonary is consulted due to concerns of possible worsening ILD. She does have some increased interstitial markings and bibasilar infiltrates. Patient has been on 2 oral courses of antibiotics and steroids with minimal improvement of symptoms. Family is concerned that she is not able to absorb the antibiotics properly. Hospital service is placed on Levaquin, but I have discontinued that and placed her back on cefepime. Nasal MRSA screen was fortunately negative. We discussed the role of bronchoscopic cryo lung biopsy and video-assisted thoracoscopic lung biopsy. She is too frail to tolerate either procedure at this time and this may be a consideration in the future should she gain more weight. She should also probably be seen by an factory focus technician as an outpatient due to her risk of immunodeficiency given her significant malnutrition. Discussed with the nursing scheduler about seeing her as a consult given her weight loss. She will need further outpatient follow-up with her main clean in places operator including PFTs and HRCT when she has recovered from this acute illness. On exam she is severely cachectic. Mild crackles in the bases. Mild tachypnea. Regular rate and rhythm. No murmurs. No significant edema. 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 The patient has apparently had the symptoms for the last several months. She was diagnosed with interstitial lung disease by Dr. Cárdenas 5 years ago. She continues to be monitored routinely and there is been no aggression per her understanding. She is on Breo as she developed dyspnea and she is currently being treated for asthma. She does report her last pulmonary function testing was performed in August at outside institution. She was seen by her primary care provider in the last few weeks and was placed on a course of prednisone and doxycycline. She does note that she had a's cough that was significant of thick and tenacious sputum prior to being treated with antibiotics. This has since improved and she is able to clear her secretions much easier. Upon evaluation in room 2872, the patient is awake, alert, and oriented. She reports that her symptoms are specific to dyspnea with any exertion. She describes the dyspnea as "a transmission skipping" where she occasionally has to stop and take a deep gasp. She does not have persistent dyspnea, however. She is only able to ambulate short distances prior to having to perform this deep breath. She has had no chest pain or palpitations. No dizziness or lightheadedness. No fevers or chills. No night sweats. The patient has had a 20 pound weight loss in the last 6 to 8 months. Allergies Allergy/AdvReac Type Severity Reaction Status Date / Time Penicillins Allergy Intermediate Rash Unverified 11/03/24 12:45 Sulfa (Sulfonamide Allergy Intermediate Rash Unverified 11/03/24 12:45 Antibiotics) Home Medications Medication Instructions Recorded Confirmed Type fluoxetine 40 mg capsule 40 mg PO QAM 03/28/24 11/03/24 History gabapentin 100 mg capsule 100 mg PO TID 03/28/24 11/03/24 History levothyroxine 100 mcg tablet 100 mcg PO QAM 03/28/24 11/03/24 History melatonin 10 mg capsule 10 mg PO HS 03/28/24 11/03/24 History montelukast 10 mg tablet 10 mg PO DAILY 03/28/24 11/03/24 History trazodone 100 mg tablet 100 mg PO HS 03/28/24 11/03/24 History albuterol sulfate 90 mcg/actuation 1 puff inhalation QID PRN 11/03/24 11/03/24 History aerosol inhaler SOB/wheezing budesonide 0.5 mg/2 mL suspension 0.5 mg inhalation BID PRN 11/03/24 11/03/24 History for nebulization SOB/WHEEZING fluticasone furoate 100 1 inh inhalation QAM 11/03/24 11/03/24 History mcg-vilanterol 25 mcg/dose inhalation powder (Breo Ellipta) linaclotide 145 mcg capsule 145 mcg PO QAM 11/03/24 11/03/24 History (Linzess) megestrol 625 mg/5 mL (125 mg/mL) 625 mg PO QAM 11/03/24 11/03/24 History oral suspension Patient History Social History Smoking Status: Never smoker Hx Alcohol Use: No Hx Substance Use: No Preferred Language: Citizen Of [place] Communication Ability: Effective Job Specification Writer Required: No Beliefs That Will Affect Care: None Current Living Situation: Spouse Feels Safe at Home: Yes Assistive Devices: Denture - Upper Review of Systems Review of Systems: A complete 10 point review of systems was reviewed with the patient with pertinent positives and negatives as per history of present illness. All else were negative. Physical Exam Physical Exam: VITAL SIGNS Vital signs and nursing notes were reviewed. GENERAL 79-year-old female appearing his stated age who is in no acute distress. Communicates well with provider and answers questions appropriately. SKIN Without rashes or lesions. NOSE Midline and without cyanosis. MOUTH/OROPHARYNX Without perioral cyanosis NECK Neck with FROM. LUNGS Chest wall evaluation demonstrates normal chest wall A:P diameter. Auscultation reveals crackles at the bases. No wheezes. CARDIAC RRR with S1/S2. No murmur, rubs, or gallops appreciated. ABDOMEN Abdominal inspection demonstrates a scaphoid abdomen. BS normoactive all four quadrants. No tenderness, palpable masses, or ascites noted. EXTREMITIES Nail clubbing not present. No peripheral cyanosis. No pretibial edema present. +3/5 radial palpated throughout. PSYCH A&Ox3 and cooperates fully with examiner. Pt is very pleasant and interacts well with examiner. Results & Data Results & Data Vital Signs (Past 12 Hours) Vital Signs Temp Pulse Pulse Resp BP Pulse Ox O2 Del Method 11/04/24 07:29 74 11/04/24 07:13 36.7 C 73 16 114/64 97 Room Air 11/04/24 07:12 77 16 98 Room Air 11/04/24 03:31 36.6 C 80 18 94/50 L 97 Room Air 11/03/24 23:33 36.6 C 91 H 18 95/52 L 96 Room Air 11/03/24 22:00 84 PG Care Time/CCT Total # of Minutes Spent Total Time Spent with Patient: Total time spent is greater than 50% in coordination of care (as documented) at patient's floor/unit and/or counseling patient: Coding Level of Care Code 79551 INT INP/OBS CARE 2/55MIN Diagnoses Dyspnea on exertion R06.09 Hypoxia R09.02 ILD (interstitial lung disease) J84.9 Pneumonia of left lower lobe due to infectious organism J18.9 Severe malnutrition E43 Severe protein-energy malnutrition E43
--- NOTE | 2024-11-04 11:00 | Surgery Consultation ---
Date of Consultation November 04, 2024 Assessment & Plan (1) ILD (interstitial lung disease): (2) Severe malnutrition: 79 yo female here with increasing shortness of breath and abd/pelvis ct scan done for dysphagia showing possible internal hernia with mesentery swirling however patient is completely asymptomatic (other than baseline gas/bloating with her chronic SIBO and history of gastric bypass surgery with small gastric pouch) from an abdominal standpoint with benign abdominal examination. No surgical intervention required. Advance to regular diet. Continue medical management. Our services signing off, call with questions/concerns. Dr. Griffiths has seen and examined patient , agrees with above. History of Present Illness Reason for Consultation: internal hernia Attending Physician: Patrick Gamez DO History of Present Illness Elda is a 79 yo female wit history of ILD, depression, hypothryoidism, GERD, severe malnutrition, SIBO, peripheral neuropathy, who presented to ED with increasing shortness of breath an feeling like could not catch her breath. CT scan of abdomen and pelvis with distended redundant colon with gas and stool along with mildly dilated small bowel loops and possible swirling of mesentery which could represent an internal hernia. She denies of any abdominal pain, increasing nausea, abdominal distention/bloating, vomiting , inability to pass gas or have bowel movements. Has had chronic issues with gas after eating but has had issues with SIBO for past year on two antibiotics. Able to eat without any abdominal pain or nausea. Is hungry and wants to advance diet. Passed flatus here this morning. Allergies Allergy/AdvReac Type Severity Reaction Status Date / Time Penicillins Allergy Intermediate Rash Unverified 11/03/24 12:45 Sulfa (Sulfonamide Allergy Intermediate Rash Unverified 11/03/24 12:45 Antibiotics) Home Medications Medication Instructions Recorded Confirmed Type fluoxetine 40 mg capsule 40 mg PO QAM 03/28/24 11/03/24 History gabapentin 100 mg capsule 100 mg PO TID 03/28/24 11/03/24 History levothyroxine 100 mcg tablet 100 mcg PO QAM 03/28/24 11/03/24 History melatonin 10 mg capsule 10 mg PO HS 03/28/24 11/03/24 History montelukast 10 mg tablet 10 mg PO DAILY 03/28/24 11/03/24 History trazodone 100 mg tablet 100 mg PO HS 03/28/24 11/03/24 History albuterol sulfate 90 mcg/actuation 1 puff inhalation QID PRN 11/03/24 11/03/24 History aerosol inhaler SOB/wheezing budesonide 0.5 mg/2 mL suspension 0.5 mg inhalation BID PRN 11/03/24 11/03/24 History for nebulization SOB/WHEEZING fluticasone furoate 100 1 inh inhalation QAM 11/03/24 11/03/24 History mcg-vilanterol 25 mcg/dose inhalation powder (Breo Ellipta) linaclotide 145 mcg capsule 145 mcg PO QAM 11/03/24 11/03/24 History (Linzess) megestrol 625 mg/5 mL (125 mg/mL) 625 mg PO QAM 11/03/24 11/03/24 History oral suspension Patient History Social History Smoking Status: Never smoker Hx Alcohol Use: No Hx Substance Use: No Preferred Language: Amharic Communication Ability: Effective Garden Labourer Required: No Beliefs That Will Affect Care: None Current Living Situation: Spouse Feels Safe at Home: Yes Assistive Devices: Denture - Upper Physical Exam Constitutional: + ill appearing, + thin, + cachectic, + frail appearing, cooperative and comfortable Respiratory: + abnormal respiratory effort, no respir atory distress and no labored breathing Gastrointestinal (Abdomen): Inspection/Auscultation: abdomen normal to inspection, + abdominal surgical scar (midline laparotomy scar) and + hypoactive bowel sounds; abdomen not distended and + abnormal bowel sounds Percussion/Palpation: abdomen soft; abdomen nontender, no guarding, abdomen not rigid and abdomen not firm Skin: no rashes, warm and dry Psychiatric: Orientation: alert and oriented x 3 Results & Data Vital Signs (Past 12 Hours) Vital Signs Temp Pulse Pulse Resp BP Pulse Ox O2 Del Method 11/04/24 10:32 Room Air 11/04/24 07:29 74 11/04/24 07:13 36.7 C 73 16 114/64 97 Room Air 11/04/24 07:12 77 16 98 Room Air 11/04/24 03:31 36.6 C 80 18 94/50 L 97 Room Air 11/03/24 23:33 36.6 C 91 H 18 95/52 L 96 Room Air Laboratory Results 11/04/24 11/03/24 11/03/24 Range/Units 05:31 21:09 16:16 WBC 10.68 (4.8-10.8) K/ul RBC 3.82 L (4.20-5.40) M/uL Hgb 11.3 L (12.0-16.0) g/dl Hct 34.7 L (37.0-47.0) % MCV 90.8 (80.0-100.0) fL MCH 29.6 (25.0-34.0) pg MCHC 32.6 (32.0-36.0) g/dL RDW Std Deviation 55.2 H (36.4-46.3) fL RDW Coeff of [place] 16.7 H (11.5-14.5) % Plt Count 375 (130-400) K/uL MPV 8.4 L (9.4-12.4) fL Sodium 140 (136-145) mmol/L Potassium 4.4 (3.5-5.1) mmol/L Chloride 111 H (98-107) mmol/L Carbon Dioxide 22 (21-32) mmol/L Anion Gap 7 (3-11) BUN 19 (6-23) mg/dl Creatinine 0.75 (0.6-1.2) mg/dl Est Cr Clr Drug Dosing 40.0 ml/min eGFR 81.95 BUN/Creatinine Ratio 25.3 H (10-20) Glucose 138 H (70-99(Fasting)) mg/dl Lactate (0.4-2.0) mmol/L Calcium 9.0 (8.6-10.3) mg/dl Magnesium 2.0 (1.7-2.4) mg/dl Vitamin B12 334 (180-914) pg/ml Folate 11.79 (>5.38) ng/ml Procalcitonin (0-0.5) ng/ml TSH 0.956 (0.300-4.500) uIu/ml Urine Color Yellow Urine Appearance Clear (Clear) Urine pH 5.5 (4.5-7.5) Ur Specific [place] 1.039 H (1.000-1.030) Urine Protein 1+ H (Negative) Urine Glucose (UA) 3+ H (Negative) Urine Ketones Negative (Negative) Urine Blood 2+ H (Negative) Urine Nitrite Negative (Negative) Urine Bilirubin Negative (Negative) Urine Urobilinogen Negative (Negative) Ur Leukocyte Esterase Negative (Negative) Urine WBC (Auto) 0-5 (0-5) /hpf Urine RBC (Auto) 11-20 H (0-2) /hpf U Hyaline Cast (Auto) 0-2 (0-2) /lpf U Epithel Cells (Auto) 0-2 (0-2) /hpf Urine Bacteria (Auto) None Seen (None Seen) Nasal Screen MRSA (PCR) Negative (Negative) Adenovirus (PCR) (NotDetected) B. pertussis DNA (PCR) (NotDetected) B.parapertussis DNA PCR (NotDetected) C. pneumoniae DNA (PCR) (NotDetected) Coronavirus OC43 (PCR) (NotDetected) Coronavirus HKU1 (PCR) (NotDetected) Coronavirus 229E (PCR) (NotDetected) SARS-CoV-2 (PCR) (NotDetected) Coronavirus NL63 (PCR) (NotDetected) Human Metapneumovir PCR (NotDetected) Influenza Type A (PCR) (NotDetected) Influenza Type B (PCR) (NotDetected) M. pneumoniae (PCR) (NotDetected) Parainfluenza 1 (PCR) (NotDetected) Parainfluenza 2 (PCR) (NotDetected) Parainfluenza 3 (PCR) (NotDetected) Parainfluenza 4 (PCR) (NotDetected) RSV (PCR) (NotDetected) Entero/Rhino (PCR) (NotDetected) 11/03/24 11/03/24 Range/Units 13:55 10:30 WBC (4.8-10.8) K/ul RBC (4.20-5.40) M/uL Hgb (12.0-16.0) g/dl Hct (37.0-47.0) % MCV (80.0-100.0) fL MCH (25.0-34.0) pg MCHC (32.0-36.0) g/dL RDW Std Deviation (36.4-46.3) fL RDW Coeff of [place] (11.5-14.5) % Plt Count (130-400) K/uL MPV (9.4-12.4) fL Sodium (136-145) mmol/L Potassium (3.5-5.1) mmol/L Chloride (98-107) mmol/L Carbon Dioxide (21-32) mmol/L Anion Gap (3-11) BUN (6-23) mg/dl Creatinine (0.6-1.2) mg/dl Est Cr Clr Drug Dosing ml/min eGFR BUN/Creatinine Ratio (10-20) Glucose (70-99(Fasting)) mg/dl Lactate 1.3 (0.4-2.0) mmol/L Calcium (8.6-10.3) mg/dl Magnesium (1.7-2.4) mg/dl Vitamin B12 (180-914) pg/ml Folate (>5.38) ng/ml Procalcitonin 0.03 (0-0.5) ng/ml TSH (0.300-4.500) uIu/ml Urine Color Urine Appearance (Clear) Urine pH (4.5-7.5) Ur Specific [place] (1.000-1.030) Urine Protein (Negative) Urine Glucose (UA) (Negative) Urine Ketones (Negative) Urine Blood (Negative) Urine Nitrite (Negative) Urine Bilirubin (Negative) Urine Urobilinogen (Negative) Ur Leukocyte Esterase (Negative) Urine WBC (Auto) (0-5) /hpf Urine RBC (Auto) (0-2) /hpf U Hyaline Cast (Auto) (0-2) /lpf U Epithel Cells (Auto) (0-2) /hpf Urine Bacteria (Auto) (None Seen) Nasal Screen MRSA (PCR) (Negative) Adenovirus (PCR) Not Detected (NotDetected) B. pertussis DNA (PCR) Not Detected (NotDetected) B.parapertussis DNA PCR Not Detected (NotDetected) C. pneumoniae DNA (PCR) Not Detected (NotDetected) Coronavirus OC43 (PCR) Not Detected (NotDetected) Coronavirus HKU1 (PCR) Not Detected (NotDetected) Coronavirus 229E (PCR) Not Detected (NotDetected) SARS-CoV-2 (PCR) Not Detected (NotDetected) Coronavirus NL63 (PCR) Not Detected (NotDetected) Human Metapneumovir PCR Not Detected (NotDetected) Influenza Type A (PCR) Not Detected (NotDetected) Influenza Type B (PCR) Not Detected (NotDetected) M. pneumoniae (PCR) Not Detected (NotDetected) Parainfluenza 1 (PCR) Not Detected (NotDetected) Parainfluenza 2 (PCR) Not Detected (NotDetected) Parainfluenza 3 (PCR) Not Detected (NotDetected) Parainfluenza 4 (PCR) Not Detected (NotDetected) RSV (PCR) Not Detected (NotDetected) Entero/Rhino (PCR) Not Detected (NotDetected) Diagnostic Findings EXAM: CT Abdomen and Pelvis Without Intravenous Contrast INDICATION: Abdominal pain TECHNIQUE: Axial computed tomography images of the abdomen and pelvis without intravenous contrast. Sagittal and coronal reformatted images were created and reviewed. This CT exam was performed using one or more of the following dose reduction techniques: automated exposure control, adjustment of the mA and/or kV according to patient size, and/or use of iterative reconstruction technique. COMPARISON: 03/28/2024 FINDINGS: Limitations: None. Lung bases: There is increased airway thickening and subpleural reticulation in the lower lobes. Pleural space: No visualized pleural effusion or pneumothorax. Heart: No abnormality noted. Mediastinum: No abnormality noted. ABDOMEN: Liver: Lack of intravenous contrast limits detection of some masses. No abnormality noted. Gallbladder and bile ducts: No calcified stones or surrounding fluid. Pancreas: No pancreatic mass, calcification, inflammation or ductal dilation noted. Spleen: No significant abnormality noted. Adrenals: No significant abnormality noted. Kidneys and ureters: No abnormality noted. No stones. No hydronephrosis. No significant perinephric fluid. Stomach and bowel: Suboptimal assessment of the intestinal tract without enteric contrast. Multiple anastomotic staple lines noted. The redundant colon is distended with air, solid stool and some admixed fluid. There are mildly prominent fluid-filled small bowel loops. There is a somewhat swirling appearance of the mesentery and collapsed bowel loops in the left pelvis series 2 images 43-56. There is no associated inflammation. Distal rectum collapsed and cannot be assessed for mass. PELVIS: Appendix: No findings to suggest acute appendicitis. Bladder: There is excreted contrast in the urinary bladder without filling defect. Reproductive: No abnormalities noted. ABDOMEN and PELVIS: Intraperitoneal space: No free air or free fluid. Bones/joints: No acute changes. Soft tissues: No significant abnormality noted. Vasculature: No abdominal aortic aneurysm. Lymph nodes: No pathologically enlarged lymph nodes. IMPRESSION: There is gaseous, formed stool and fluid distention of redundant colonic loops and some small bowel loops. There are some relatively normal caliber small bowel loops in the left abdomen and a swirled appearance of the mesentery which could reflect an internal hernia and partial obstruction. Distal rectum is collapsed and cannot be assessed for mass. There is no perforation or abscess.
--- NOTE | 2024-11-04 13:47 | Hospitalist Progress Note ---
Date of Service November 04, 2024 Assessment & Plan (1) ILD (interstitial lung disease): (2) Pneumonia involving left lung: (3) Severe malnutrition: (4) Physical deconditioning: (5) Peripheral neuropathy: (6) Depression: (7) Hypothyroidism: Plan Patient presents to the hospital with progressive dyspnea on exertion and intermittent hypoxia that has been progressing over the last few weeks. Has been treated outpatient with antibiotics and steroids with no benefit. Patient also had CT of the abdomen question possible abnormalities. Patient is history of gastric banding that was reversed with a Zeus-en-Y. Denies any abdominal pain Reviewed surgical consultation. No concerning findings based on their review of the CT scan. Advance diet and patient is tolerating a regular diet Extensive conversation with pulmonary, reviewed CT images with them. Reviewed recommendations. Based on conversation concern that patient's dyspnea and hypoxia is actually due to interstitial lung disease possibly progressing more rapidly over the last few weeks. Much lower suspicion for pneumonia as a cause for her symptoms. There may be some mild pneumonia in the left lower lobe probably not the etiology of her symptoms, procalcitonin being negative would give evidence against a significant bacterial pneumonia. However pulmonary recommended treating with antipseudomonal antibiotic No evidence of bronchospasm, discontinue steroids Continue current inhalers Discontinue saline nebs Discontinue IV antibiotics, oral Levaquin. Two-step oxygen testing tomorrow morning to determine if patient qualifies for home oxygen Patient with evidence of severe protein malnutrition. Encouraged protein supplement beverages Patient will need outpatient follow-up with her combat information center officer Daughter at the bedside and informed of plan Admission and Anticipated Discharge Date Admission Date: November 03, 2024 Subjective Patient reports dyspnea with exertion. O2 sat have been adequate on room air. No abdominal pain and is tolerating her regular diet. Daughter at bedside Physical Exam Physical Exam: Constitutional: Alert, thin, underweight HEENT: Mucous membranes moist. Lungs: Decreased breath sounds, prolonged expiratory phase, fine crackles throughout CV: S1-S2, regular Abdomen: Soft, nontender, nondistended Extremities: No significant edema Neuro: No focal deficits Psych: Cooperative, normal mood Results & Data Results & Data Vital Signs (Past 12 Hours) Vital Signs Temp Pulse Pulse Resp BP Pulse Ox O2 Del Method 11/04/24 12:40 97 11/04/24 10:32 Room Air 11/04/24 07:29 74 11/04/24 07:13 36.7 C 73 16 114/64 97 Room Air 11/04/24 07:12 77 16 98 Room Air 11/04/24 03:31 36.6 C 80 18 94/50 L 97 Room Air Diagnostic Findings Reviewed imaging, laboratory and diagnostic studies. Pertinent findings as below. WBCs 10.6 Hemoglobin 0.3 Platelets of 375 Electrolytes stable Creatinine 0.75 TSH 0.95 Procalcitonin 0.03 (5) Peripheral neuropathy Peripheral neuropathy type: polyneuropathy, unspecified Qualified Code(s): G62.9 - Polyneuropathy, unspecified (6) Depression Depression Type: unspecified Qualified Code(s): F32.A - Depression, unspecified (7) Hypothyroidism Hypothyroidism type: unspecified Qualified Code(s): E03.9 - Hypothyroidism, unspecified
[2024-11-04] MEDS: levoFLOXacin 750 MG TAB PO SCH (14:26)
[2024-11-04] MEDS: CEFEPIME 2000MG 2,000 MG/20 ML SYR IV SCH (16:28)
[2024-11-04] MEDS: ALBUT/IPRATROP 3MG/0.5MG NEB 3 ML VIAL NEB SCH (19:53)
[2024-11-05 08:47] LABS: Hematocrit (blood only) 37.7 % (37.0-47.0); Hemoglobin 12.2 g/dl (12.0-16.0); Mean Corpuscular Hgb Conc 32.4 g/dL (32.0-36.0); Mean Corpuscular Volume 92.9 fL (80.0-100.0); Mean Platelet Volume 8.4 fL (9.4-12.4); Platelet Count 409 K/uL (130-400); RDW Coefficient of Variation 17.1 % (11.5-14.5); RDW Standard Deviation 57.7 fL (36.4-46.3); Red Blood Count 4.06 M/uL (4.20-5.40); White Blood Count 15.77 K/ul (4.8-10.8)
--- NOTE | 2024-11-05 09:12 | Pulmonology Progress Note ---
Date of Service November 05, 2024 Assessment & Plan (1) Dyspnea on exertion: Plan: Multifactorial in the 79-year-old female who is likely severely deconditioned secondary to protein calorie malnutrition and findings of fibrotic lung changes on CT. Patient's description of dyspnea is unique in that she describes occasional gasping rather than persistent symptoms of dyspnea. She passed her two-step evaluation without the need for supplemental oxygen for home. She should follow-up with her metal sash setter later this month as previously scheduled. 6-minute walk can be performed in their office which should be part of her evaluation anyway given her diagnosis of ILD. (2) Hypoxia: Plan: Saturating well on room air at this time. (3) ILD (interstitial lung disease): Plan: CTA reviewed. There does appear to be findings of interstitial lung disease that do not appear consistent with pattern of UIP as described on CT. If has not been completed already, patient may benefit from serologic evaluation in the outpatient setting. Additionally, high-resolution CT scan would also be beneficial in defining parenchymal disease. She had pulmonary function testing performed in August. She would likely benefit from pulmonary function testing with diffusion capacity to assess any significant change. Unfortunately, we are unable to compare her recent chest CT from a few weeks ago at outside institution to assess for progression versus resolution. Would recommend close follow-up with the patient's primary patient access specialist through [facility]. She does have an appointment later this month. (4) Pneumonia involving left lung: Plan: Infiltrative change noted at the LEFT-sided lung base on CT. Will not impressive and likely not driving the patient's symptoms, would recommend completion of therapy for community-acquired pneumonia. While the patient does have some structural lung disease changes, no documented history of pseudomonal infection. Recommend sputum cultures if able to obtain. Consideration for completion of antipseudomonal antibiotic in the outpatient setting. (5) Severe malnutrition: Plan: Defer to primary service. Appears to be more of a chronic situation. (6) Severe protein-energy malnutrition: Plan Thank you for allowing us to participate in the care of this pleasant patient. Admission and Anticipated Discharge Date Admission Date: November 03, 2024 Subjective Patient seen and evaluated at bedside. She is doing well. She performed her two-step evaluation and does not require supplemental oxygen. She is hopeful for discharge soon. Review of Systems Review of Systems: A complete 10 point review of systems was reviewed with the patient with pertinent positives and negatives as per history of present illness. All else were negative. Physical Exam Physical Exam: VITAL SIGNS Vital signs and nursing notes were reviewed. GENERAL 79-year-old female appearing his stated age who is in no acute distress. Communicates well with provider and answers questions appropriately. SKIN Without rashes or lesions. NOSE Midline and without cyanosis. MOUTH/OROPHARYNX Without perioral cyanosis NECK Neck with FROM. LUNGS Chest wall evaluation demonstrates normal chest wall A:P diameter. Auscultation reveals crackles at the bases. No wheezes. CARDIAC RRR with S1/S2. No murmur, rubs, or gallops appreciated. ABDOMEN Abdominal inspection demonstrates a scaphoid abdomen. BS normoactive all four quadrants. No tenderness, palpable masses, or ascites noted. EXTREMITIES Nail clubbing not present. No peripheral cyanosis. No pretibial edema present. +3/5 radial palpated throughout. PSYCH A&Ox3 and cooperates fully with examiner. Pt is very pleasant and interacts well with examiner. Results & Data Results & Data Vital Signs (Past 12 Hours) Vital Signs Temp Pulse Pulse Pulse Pulse Pulse Resp 11/05/24 08:11 11/05/24 07:55 36.6 C 77 17 11/05/24 07:30 78 18 11/05/24 07:28 100 H 94 H 102 H 11/05/24 07:09 71 11/04/24 22:00 36.7 C 100 H 18 Resp Resp Resp BP Pulse Ox Pulse Ox Pulse Ox 11/05/24 08:11 11/05/24 07:55 129/66 99 11/05/24 07:30 98 11/05/24 07:28 20 16 16 91 98 11/05/24 07:09 11/04/24 22:00 94/54 L 96 Pulse Ox O2 Del Method 11/05/24 08:11 Room Air 11/05/24 07:55 Room Air 11/05/24 07:30 Room Air 11/05/24 07:28 96 11/05/24 07:09 11/04/24 22:00 Room Air PG Care Time/CCT Total # of Minutes Spent Total Time Spent with Patient: Total time spent is greater than 50% in coordination of care (as documented) at patient's floor/unit and/or counseling patient: Coding Level of Care Code 81586 SUB INP/OBS CARE 35MIN Diagnoses Dyspnea on exertion R06.09 Hypoxia R09.02 ILD (interstitial lung disease) J84.9 Pneumonia of left lower lobe due to infectious organism J18.9 Severe malnutrition E43 Severe protein-energy malnutrition E43
--- NOTE | 2024-11-05 11:03 | Discharge Summary ---
Discharge Summary Date of Service November 05, 2024 Principal Dx & Hospital Course #1 = Principal Diagnosis (1) ILD (interstitial lung disease): (2) Pneumonia involving left lung: (3) Severe malnutrition: (4) Physical deconditioning: (5) Peripheral neuropathy: (6) Depression: (7) Hypothyroidism: Plan Patient presented to the emergency room with shortness of breath that had been progressing over the last several weeks. She was noted to be intermittently hypoxic. She had been on outpatient antibiotics and steroids but was not improving. In the emergency room there was concern of possibly developing left lower lobe pneumonia. Patient was admitted to the hospital. Put on IV antibiotics. Pulmonary consultation was obtained. She rapidly was titrated off oxygen. Extensive review of the imaging and discussion with the patient reviewing her previous records, it is felt that more likely patient's progressive and ongoing dyspnea was due to interstitial lung disease. There may be a very slight left lower lobe pneumonia. However, procalcitonin was negative. Was recommended that based on her interstitial lung disease trial of a antipseudomonal antibiotic. She was given cefepime and then transition to Levaquin. She tolerated this well. On admission she also had a CT of the abdomen performed. There was some concerns of some gaseous formation and swelling of the mesentery. Surgical consultation was obtained. Patient is status post remote Zeus-en-Y surgery as she was reversal of gastric banding. There did not appear to be any acute surgical intervention her diet was advanced and she did well with tolerating a regular diet with no abdominal pain. There was also significant component of malnutrition contributing to her dyspnea with chronic muscle wasting and weakness. She was encouraged to increase her caloric intake with dietary protein supplements. On the day of discharge two-step oxygen testing was performed. She did not require or meet criteria for home oxygen. She will be discharged home to follow-up with outpatient PCP and her outpatient manager of information as already scheduled later on this month. Notes For Next Care Provider Follow-up with pulmonary. Consider pulmonary function testing with diffusion capacity, consider 6-minute walking O2 saturation testing in the outpatient room, consider additional serological testing for interstitial lung disease Medication Changes From Visit [facility] Admission HPI Per Admitting Provider Elda Guillen is a 79y/o F with PMHx significant for hypothyroidism, HLD, chronic rhinitis, history of vertical banding gastroplasty converted to Zeus-en-Y bypass due to gastroparesis done in 2020 at [facility], diaphragmatic hernia, GERD, SIBO, venous insufficiency, peripheral neuropathy, depression, asthma and ILD who presented to the ED with c/o persistent cough and worsening SOB over the course of several weeks. History obtained from the patient, daughter at bedside, discussion with ED provider and associated chart review. Patient with worsening SOB and persistent cough for about the last month ISO asthma and ILD. Recently completed burst course of oral prednisone and 5-day course of oral doxycycline about 2 weeks ago. Prior to that, patient was on a Z- Jakub and also an additional oral prednisone burst course. She has not noticed any improvement in her SOB. Patient feels short of breath with both rest and exertion, however her SOB is significantly worse and more noticeable with activity. Her breathing has gradually declined over the past month to the point where she becomes greatly winded with minimal exertion. No supplemental oxygen use at home. Follows with Dr. Sami Cárdenas of [facility]. Currently on Singulair and Breo Ellipta inhaler for maintenance therapy. Notes she was started on Breo Ellipta about 3 months ago. Was previously on Spiriva per her daughter. Has been using budesonide nebulizer treatments daily for the past month or so. Denies using her albuterol rescue inhaler all but a few times however. Her cough was initially productive of yellow/green sputum however now it is significantly less productive after finishing the doxycycline course about 2 weeks ago as mentioned previously. No reported fevers. Had chest CT done 2 weeks ago at [facility] which was unremarkable per patient's recollection although there are no records available to review this imaging study. Not hypoxic at rest in the ED, however her oxygen saturation did drop to the low 80s with ambulation. Did not require any supplemental oxygen in the ED. Remains nonhypoxic at rest during our conversation. Initial laboratory evaluation notable for leukocytosis with neutrophilic predominance (WBC of 13.5k). Electrolytes stable. Procalcitonin negative. Lactate negative. Respiratory BioFire panel negative as well. CXR with noted possible emphysema and mild peripheral reticular opacities which are likely chronic and represent either scarring or early pulmonary fibrosis. 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 Admission Exam Per Admitting Provider See H&P Discharge Exam Constitutional: Alert, nontoxic, frail, underweight nearly cachectic in appearance HEENT: Mucous membranes moist. Lungs: Decreased breath sounds with fine crackles throughout consistent with interstitial lung disease CV: S1-S2, regular, systolic murmur Abdomen: Soft, nontender, nondistended Extremities: No significant edema Neuro: No focal deficits, generalized weakness Psych: Cooperative, normal mood Updated Medication List Medication Instructions Recorded Confirmed Type fluoxetine 40 mg capsule 40 mg PO QAM 03/28/24 11/03/24 History gabapentin 100 mg capsule 100 mg PO TID 03/28/24 11/03/24 History levothyroxine 100 mcg tablet 100 mcg PO QAM 03/28/24 11/03/24 History melatonin 10 mg capsule 10 mg PO HS 03/28/24 11/03/24 History montelukast 10 mg tablet 10 mg PO DAILY 03/28/24 11/03/24 History trazodone 100 mg tablet 100 mg PO HS 03/28/24 11/03/24 History albuterol sulfate 90 mcg/actuation 1 puff inhalation QID PRN 11/03/24 11/03/24 History aerosol inhaler SOB/wheezing budesonide 0.5 mg/2 mL suspension 0.5 mg inhalation BID PRN 11/03/24 11/03/24 History for nebulization SOB/WHEEZING fluticasone furoate 100 1 inh inhalation QAM 11/03/24 11/03/24 History mcg-vilanterol 25 mcg/dose inhalation powder (Breo Ellipta) linaclotide 145 mcg capsule 145 mcg PO QAM 11/03/24 11/03/24 History (Linzess) megestrol 625 mg/5 mL (125 mg/mL) 625 mg PO QAM 11/03/24 11/03/24 History oral suspension L.acidop,casei,lactis,rham-B.lact,asaf 1 cap PO DAILY #30 caps 11/05/24 Rx 625 mg (10 billion cell) capsule (Advanced Probiotic) guaifenesin 600 mg tablet, 1,200 mg (2 x 600 mg) PO Q12 #60 11/05/24 Rx extended release 12 hr (Mucinex) tabs levofloxacin 750 mg tablet 750 mg PO DAILY 5 days #5 tabs 11/05/24 Rx pantoprazole 40 mg tablet,delayed 40 mg PO DAILY #30 tabs 11/05/24 Rx release Hospital Stay Data Consultations 11/03/24 14:00 HIM [Consult Health Information Management] Routine 11/03/24 14:16 ED Decision to Admit Stat 11/03/24 15:42 Consult Pulmonology Routine 11/03/24 16:00 Consult General Surgery Routine 11/05/24 08:50 Burn CD for patient Routine Diagnostic Imagining Performed 11/03/24 12:05 CT angio chest PE protocol Stat 11/03/24 14:36 CT abd pelvis wo con Routine Reviewed imaging, laboratory and diagnostic studies. Pertinent findings as below. WBCs 15.7 increased due to steroids that she received IV yesterday. Hemoglobin 12.2 Platelets of 409 Blood cultures no growth Procalcitonin 0.03 TSH 0.95 Pending Results Patient Have Any Pending Studies at Discharge: No Discharge Instructions Given to Patient (Per Discharging Provider) Follow-up with your outpatient manager of information for ongoing evaluation for interstitial lung disease. Discuss serological testing, high-resolution CT, pulmonary function testing with diffusion capacity if these tests have not been performed already. Total Time Total Time Spent Total Time Spent (In Minutes): 35
[2024-11-05 11:48] VITALS: BP 106/63; PULSE 79; RESP 18; TEMP 98.1; O2SAT 95
--- NOTE | 2024-11-05 11:55 | Surgery Progress Note ---
Date of Service November 05, 2024 Assessment & Plan (1) Severe malnutrition: Plan: Her weight loss and malnutrition preceded this hospitalization and she is working hard at home to regain some of her weight. Currently no clinical evidence of a GI issue. I suspect some of the findings on imaging are chronic in relation to her prior GI surgeries. We will sign off but will be available for any issues concerns or questions. (2) Severe protein-energy malnutrition: Admission and Anticipated Discharge Date Admission Date: November 03, 2024 Subjective Patient seen. Feeling considerably better. She states that she can for short breath or had any GI symptoms. She is eating regular diet without issue Physical Exam Constitutional: WD/WN, vitals as above no acute distress and not ill appearing Eyes: PERRL, conjunctivae normal, anicteric sclerae EOM intact bilaterally ENMT: external ear and nose normal, oropharynx normal Ears: no hearing impairment Neck: trachea midline, no thyromegaly Respiratory: normal respiratory effort; no respiratory distress and does not use accessory muscles Cardiovascular: Rate/Rhythm: regular rate and regular rhythm Gastrointestinal (Abdomen): normal bowel sounds, soft, nontender, no hepatosplenomegaly Skin: no rashes, warm and dry Psychiatric: Orientation: alert, oriented x 3 and cooperative Results & Data Vital Signs (Past 12 Hours) Vital Signs Temp Pulse Pulse Pulse Pulse Pulse Resp 11/05/24 11:47 36.7 C 79 18 11/05/24 10:58 36.6 C 77 17 11/05/24 08:11 11/05/24 07:55 36.6 C 77 17 11/05/24 07:30 78 18 11/05/24 07:28 100 H 94 H 102 H 11/05/24 07:09 71 Resp Resp Resp BP Pulse Ox Pulse Ox Pulse Ox 11/05/24 11:47 106/63 95 11/05/24 10:58 129/66 99 11/05/24 08:11 11/05/24 07:55 129/66 99 11/05/24 07:30 98 11/05/24 07:28 20 16 16 91 98 11/05/24 07:09 Pulse Ox O2 Del Method 11/05/24 11:47 Room Air 11/05/24 10:58 11/05/24 08:11 Room Air 11/05/24 07:55 Room Air 11/05/24 07:30 Room Air 11/05/24 07:28 96 11/05/24 07:09 PG Care Time/CCT Total # of Minutes Spent Total Time Spent with Patient: Total time spent is greater than 50% in coordination of care (as documented) at patient's floor/unit and/or counseling patient: Coding Level of Care Code 27220 SUB INP/OBS CARE 09/21MIN Diagnoses Severe malnutrition E43 Severe protein-energy malnutrition E43
[2024-11-05] MEDS: levoFLOXacin/D5W 750 MG/150 ML BAG IV ONE (12:07)
== END 2024-11-05 15:34 | disposition home or self-care (01) | DRG 193 ==
LOC: ED 10:08 → EDINP 13:46 → SUATTDRO 13:46 → 2N 18:31